=== PATIENT | male | born 1955 | race Caucasian/White ===

== ENCOUNTER 2023-01-31 20:16 | Emergency (ER) | payer BC, SELFPAY ==
[2023-01-31 20:22] VITALS: BP 151/102; PULSE 117; RESP 16; TEMP 36.6; O2SAT 94; BMI 32.5
--- NOTE | 2023-01-31 20:52 | ED.GENADULT ---
HPI - General Adult General Time Seen by Provider: 20:52 Date Seen: 01/31/23 Chief complaint: Urogenital Problems, Male Stated complaint: Catheter bleed Time Seen by Provider: 01/31/23 20:27 Source: patient Mode of arrival: ambulatory Limitations: no limitations History of Present Illness HPI narrative: Patient is a 67-year-old male with a history of enlarged prostate who recently had prostate surgery on Saturday and the [facility]. He was discharged home yesterday with a catheter in place. They state when he 1st had the catheter placed on Saturday after his surgery he was having blood in his urine and he had to flush it several times. He was discharged yesterday with some pinkish appearing urine but was in a good notes by with a repeat comfortable discharging him home. They then noticed today that the bleeding became very dark red in the urine. They called their urologist to inform them to return to the hospital. They states since they are living hour 15 minutes away they recommended to go to the nearest emergency department. Patient denies any abdominal pain, lightheadedness, dizziness, fevers, chills, weakness, headaches, vision changes, chest pain, shortness of breath. Related Data Home Medications Medication Instructions Recorded Confirmed acetaminophen 500 mg capsule 500 mg PO Q6H PRN 01/31/23 01/31/23 aspirin 81 mg capsule 81 mg PO DAILY 01/31/23 01/31/23 cefdinir 300 mg capsule 300 mg PO BID 01/31/23 01/31/23 enoxaparin 40 mg/0.4 mL 40 mg subcut DAILY 01/31/23 01/31/23 subcutaneous syringe (Lovenox) gabapentin 300 mg capsule 300 mg PO QID 01/31/23 01/31/23 lisinopril 10 mg tablet 10 mg PO DAILY 01/31/23 01/31/23 metformin 1,000 mg tablet 1,000 mg PO BIDWMEAL 01/31/23 01/31/23 oxybutynin 10 mg PO .24h 01/31/23 01/31/23 oxycodone 5 mg tablet,oral ONLY 5 mg PO Q4-6H PRN 01/31/23 01/31/23 (not feeding tubes) (Oxaydo) pioglitazone 30 mg tablet (Actos) 30 mg PO DAILY 01/31/23 01/31/23 simvastatin 40 mg tablet 40 mg PO QHS 01/31/23 01/31/23 tadalafil 5 mg tablet 5 mg PO DAILY 01/31/23 01/31/23 Allergies Allergy/AdvReac Type Severity Reaction Status Date / Time No Known Drug Allergies Allergy Verified 01/31/23 20:37 Review of Systems Status of ROS: Reports: 10 or more systems reviewed and unremarkable except as noted in History and below Exam Narrative: Exam Narrative: Const: Well-nourished, Well-developed, in mild distress Eyes: PERRL, no conjunctival injection, and symmetrical lids ENMT: Atraumatic external nose and ears. Moist mucous membranes. Neck: Symmetric, trachea midline, No thyromegaly. CVS: RRR, No murmurs or gallops. Peripheral pulses 2+ and equal in all extremities RESP: Unlabored respiratory effort. Clear to auscultation bilaterally. GI: Nontender/Nondistended, No rebound or guarding. : Arellano in place with dark red hematuria MSK:Extremities w/o deformity, Normal Active ROM Skin: Warm, Dry. No rashes or lesions. Neuro: Normal Muscle tone, No focal neurological deficits. Psych: Awake, Alert, & Oriented x3. Appropriate mood and affect. Const: Vital Signs, click to edit/add: Vital Signs - 24 hr 01/31/23 20:22 01/31/23 22:30 Temperature 97.9 F Pulse Rate [Right Pulse Oximeter] 117 H 102 H Respiratory Rate 16 16 Blood Pressure [Ri ght Upper Arm] 151/102 H 115/72 Pulse Oximetry 94 96 Oxygen Delivery Me thod Room Air Room Air Course Vital Signs Vital signs: Initial Vital Signs Temperature 97.9 F 01/31/23 20:22 Temperature Source Temporal Artery Scan 01/31/23 20:22 Pulse Rate 117 H 01/31/23 20:22 Pulse Rhythm Regular 01/31/23 20:22 Respiratory Rate 16 01/31/23 20:22 Blood Pressure 151/102 H 01/31/23 20:22 Blood Pressure Mean 118 H 01/31/23 20:22 Blood Pressure Position Sitting 01/31/23 20:22 Pulse Oximetry 94 01/31/23 20:22 Oxygen Delivery Method Room Air 01/31/23 20:22 Vital Signs Temperature 97.9 F 01/31/23 20:22 Pulse Rate 117 H 01/31/23 20:22 Respiratory Rate 16 01/31/23 20:22 Blood Pressure 151/102 H 01/31/23 20:22 Pulse Oximetry 94 01/31/23 20:22 Oxygen Delivery Method Room Air 01/31/23 20:22 Temperature 97.9 F 01/31/23 20:22 Pulse Rate 102 H 01/31/23 22:30 Respiratory Rate 16 01/31/23 22:30 Blood Pressure 115/72 01/31/23 22:30 Pulse Oximetry 96 01/31/23 22:30 Oxygen Delivery Method Room Air 01/31/23 22:30 Medical Decision Making MDM Narrative Medical decision making narrative: Patient is a 67-year-old male with recent prostate surgery as of SaturdayJanuary 28. He had a Arellano placed to initially draining large amounts of blood and clots that resolved. He was discharged from the hospital at [facility] yesterday with slightly pink tinged urine. Today he noticed dark red urine and multiple clots passing. Patient denies lightheadedness, dizziness, abdominal pain or any other symptoms at this time. They initially spoke to [facility] who told him to go to the nearest emergency department. CBC and BMP were ordered. CBC shows hemoglobin 9.7. Unsure what his baseline is but does not appear to show any signs of new urgent blood transfusion. His BMP shows no concerning abnormalities. I spoke to Dr. Mike of Urology and he agrees with the transfer request. At 1 point the urine did clear up and there was thought possibly discharging home but I did have the patient stand up to see fluid drain more blood to the possibility of the blood just settling in his bladder while he is sitting down. Since he stated that he became dark red urine again. He does recommend we get a ultrasound of the bladder. That has been performed. We do not have EMS available at this time and patient is stable to go by private vehicle. Lab Data Labs: Lab Results 01/31/23 Range/Units 20:49 WBC 6.85 (4.50-11.00) K/uL RBC 3.06 L (4.30-5.90) m/uL Hgb 9.7 L (13.5-17.5) gm/dL Hct 29.4 L (37.0-53.0) % MCV 96 (80-100) fL MCH 32 (26-34) pg MCHC 33 (32-36) gm/dL RDW Coeff of Debbie 12.9 (11.5-15.5) % Plt Count 238 (140-440) K/uL Neut % (Auto) 66.5 (42.0-72.0) % Lymph % (Auto) 21.6 (20-44) % [place] % (Auto) 9.2 (0.0-11.0) % Eos % (Auto) 1.8 (0.0-7.0) % Baso % (Auto) 0.3 (0.0-3.0) % Neut # (Auto) 4.56 (1.7-7.0) K/uL Lymph # (Auto) 1.48 (0.90-2.90) K/uL [place] # (Auto) 0.60 (0.00-0.90) K/UL Eos # (Auto) 0.12 (0.00-0.50) K/uL Baso # (Auto) 0.02 (0.00-0.30) K/uL Abs Immat Gran (auto) 0.04 (0.00-0.30) K/uL Imm/Tot Granulo (auto) 0.6 % Sodium 136 (135-149) mmol/L Potassium 3.6 (3.6-5.1) mmol/L Chloride 102 (96-114) mmol/L Carbon Dioxide 26 (20-32) mmol/L BUN 14 (7-30) mg/dL Creatinine 1.1 (0.5-1.5) mg/dL Estimated Creat Clear 63.91 Estimated GFR 74 ml/min Glucose 220 H (60-115) mg/dL Calcium 9.1 (8.4-10.6) mg/dL Discharge Plan Discharge Clinical Impression: Hematuria Qualifiers: Hematuria type: gross Qualified Code(s): R31.0 - Gross hematuria Patient Disposition: Xfer [facility] Discharge Location: [facility] Condition: Stable Prescriptions: No Action metformin 1,000 mg tablet 1,000 mg PO BIDWMEAL cefdinir 300 mg capsule 300 mg PO BID oxybutynin 10 mg PO .24h tadalafil 5 mg tablet 5 mg PO DAILY acetaminophen 500 mg capsule 500 mg PO Q6H PRN Oxaydo 5 mg tablet, oral only 5 mg PO Q4-6H PRN enoxaparin [Lovenox] 40 mg/0.4 mL syringe 40 mg subcut DAILY aspirin 81 mg capsule 81 mg PO DAILY gabapentin 300 mg capsule 300 mg PO QID simvastatin 40 mg tablet 40 mg PO QHS pioglitazone [Actos] 30 mg tablet 30 mg PO DAILY lisinopril 10 mg tablet 10 mg PO DAILY Stand Alone Forms: [facility] Info Instructions
[2023-01-31 21:03] LABS: Basophils Absolute Auto 0.02 K/uL (0.00-0.30); Basophils Percent Auto 0.3 % (0.0-3.0); Eosinophils Absolute Auto 0.12 K/uL (0.00-0.50); Eosinophils Percent Auto 1.8 % (0.0-7.0); Hematocrit 29.4 % (37.0-53.0); Hemoglobin* 9.7 gm/dL (13.5-17.5); Immature Granulocytes Abs Auto 0.04 K/uL (0.00-0.30); Immature Granulocytes Pct Auto 0.6 %; Lymphocytes Absolute Auto 1.48 K/uL (0.90-2.90); Lymphocytes Percent Auto 21.6 % (20-44); Mean Corpuscular HGB Conc 33 gm/dL (32-36); Mean Corpuscular Hemoglobin 32 pg (26-34); Mean Corpuscular Volume 96 fL (80-100); Monocytes Percent Auto 9.2 % (0.0-11.0); Neutrophils Absolute Auto 4.56 K/uL (1.7-7.0); Neutrophils Percent Auto 66.5 % (42.0-72.0); Platelet Count* 238 K/uL (140-440); RDW Coefficient of Variation % 12.9 % (11.5-15.5); Red Blood Count 3.06 m/uL (4.30-5.90); White Blood Count* 6.85 K/uL (4.50-11.00)
[2023-01-31 21:12] LABS: Slide Review Reflex No
[2023-01-31 21:15] LABS: Chloride* 102 mmol/L (96-114)
[2023-01-31 21:16] LABS: Potassium* 3.6 mmol/L (3.6-5.1); Sodium* 136 mmol/L (135-149)
[2023-01-31 21:18] LABS: Carbon Dioxide* 26 mmol/L (20-32); Creatinine* 1.1 mg/dL (0.5-1.5); Est. Creatinine Clearance* 63.91; Estimated Glomerular Filt Rate 74 ml/min
[2023-01-31 21:19] LABS: Blood Urea Nitrogen* 14 mg/dL (7-30); Calcium* 9.1 mg/dL (8.4-10.6); Glucose* 220 mg/dL (60-115)
--- NOTE | 2023-01-31 21:32 | CRLHL7_ITS ---
For Patients: As a result of the Century Cures Act, medical imaging exams and procedure reports are released immediately into your electronic medical record. You may view this report before your referring provider. If you have questions, please contact your health care provider. INDICATION: Hematuria, prostatectomy pain 01/28/2023 TECHNIQUE: Ultrasound renal bilateral. Campos-scale and color Doppler sonographic images were acquired of the kidneys and urinary bladder. COMPARISON: None FINDINGS: Right Kidney: 11.7 cm. Mild right renal pelviectasis and hydroureter are noted with a suspected echogenic structure measuring 9 mm in the right ureter. There is a region of scattered echogenicity in the lower pole of the right kidney which may represent a cluster of intrarenal stones. Left Kidney: 13 cm. The left kidney is normal in appearance and echotexture. No hydronephrosis or ureterectasis is seen. Bladder: The bladder is decompressed by a Arellano catheter and is difficult to evaluate. IMPRESSION: 1. Mild right renal pelviectasis and hydroureter are noted with a suspected echogenic structure measuring 9 mm in the right ureter. Evaluation with CT may be helpful to exclude a ureteral stone. Dictated by Marshall Mckeon MD @ 01/31/2023 10:37:40 PM Dictated by: Marshall Mckeon MD @ 01/31/2023 22:38:28 (Electronically Signed)
--- NOTE | 2023-01-31 22:16 | PC.NURSE ---
Report to BRENDON Summers at [place]. Patient will transfer via private vehicle to [facility]
--- NOTE | 2023-01-31 22:25 | PC.NURSE ---
400CC dark red bloody urine emptied from catheter.
[2023-01-31 22:30] VITALS: BP 115/72; PULSE 102; RESP 16; O2SAT 96
== END 2023-01-31 22:39 | disposition short-term general hospital (02) ==
PROVIDERS: Emergency Provider Student in an Organized Health Care Education/Training Program; PCP Family Medicine
DX: R31.0 Gross hematuria (principal)
CPT/HCPCS: 36415; 76770; 80048; 85025; 99283; 99284